=== PATIENT | female | born 1950 | race Caucasian/White ===

== ENCOUNTER 2017-11-14 09:00 | Day surgery (SDC) | payer BC ==
[2017-11-14] MEDS ORDERED: FENTAnyl 50 MCG/ML VIAL (11:07)
[2017-11-14] MEDS ORDERED: MIDAZOLAM 1 MG/ML 2 ML INJ ×2 (11:07)
== END 2017-11-14 11:45 | disposition home or self-care (01) ==
LOC: GIL 09:00
DX: Z12.11 Encounter for screening for malignant neoplasm of colon (principal); K64.8 Other hemorrhoids
CPT/HCPCS: 45378

== ENCOUNTER → 2018-01-21 | Outpatient (CLI) | payer BC ==
[2018-01-21 07:35] LABS: ADD MAN DIFF? NO
[2018-01-21 07:38] LABS: WHITE BLOOD COUNT 6.9 10^3/ul (4.8-10.8)
[2018-01-21 07:38] LABS: BASOPHILS % 0.3 % (0.0-2.0); EOSINOPHILS # 0.2 10^3/ul (0.0-0.5); EOSINOPHILS % 2.2 % (0.0-7.0); HEMATOCRIT 34.4 % (37.0-47.0); HEMOGLOBIN 11.3 g/dl (12.0-16.0); LYMPHOCYTES # 3.3 10^3/ul (0.8-2.9); LYMPHOCYTES % 48.5 % (15.0-51.0); MEAN CORPUSCULAR HEMOGLOBIN 32.1 pg (29.0-33.0); MEAN CORPUSCULAR HGB CONC 32.8 g/dl (32.0-37.0); MEAN CORPUSCULAR VOLUME 97.7 fl (82.0-101.0); MEAN PLATELET VOLUME 9.6 fl (7.4-10.4); MONOCYTE # 0.6 10^3/ul (0.3-0.9); MONOCYTES % 8.1 % (0.0-11.0); NEUTROPHIL # 2.8 10^3/ul (1.6-7.5); NEUTROPHILS % 40.8 % (39.0-77.0); PLATELET COUNT 203 10^3/UL (140-415); RED BLOOD COUNT 3.52 10^6/ul (4.20-5.40); RED CELL DISTRIBUTION WIDTH 16.3 % (11.5-14.5)
[2018-01-21 08:05] LABS: ALANINE AMINOTRANSFERASE 21 IU/L (13-69); ALBUMIN 4.2 g/dl (3.3-4.9); ALKALINE PHOSPHATASE 102 IU/L (42-121); ANION GAP 10 (8-16); ASPARTATE AMINO TRANSFERASE 19 IU/L (15-46); BILIRUBIN,INDIRECT 0.2 mg/dl (0-1.1); BILIRUBIN,TOTAL 0.2 mg/dl (0.2-1.3); BLOOD UREA NITROGEN 14 mg/dl (7-20); CALCIUM 9.1 mg/dl (8.4-10.2); CARBON DIOXIDE 28 mmol/L (21-31); CHLORIDE 111 mmol/L (97-110); CHOL/HDL RATIO 3.7 RATIO; CHOLESTEROL 211 mg/dl (100-200); GLUCOSE 98 mg/dl (70-220); HDL CHOLESTEROL 57 mg/dl (35-98); LDL CHOLESTEROL,CALCULATED 118 mg/dl; POTASSIUM 4.5 mmol/L (3.5-5.1); SODIUM 144 mmol/L (135-144); TOTAL PROTEIN 7.7 g/dl (6.1-8.1); TRIGLYCERIDES 179 mg/dl (0-149)
== END | disposition home or self-care (01) ==
LOC: LAB 07:17
DX: R10.9 Unspecified abdominal pain (principal)
CPT/HCPCS: 80053; 80061; 85025

== ENCOUNTER 2018-04-01 20:01 | Emergency (ER) | payer BC | END 2018-04-01 22:00 | disposition home or self-care (01) | LOC: FTE 22:00 | DX: B02.9 Zoster without complications (principal) | CPT/HCPCS: 99283 ==

== ENCOUNTER 2019-04-25 17:47 | Emergency (ER) | payer BC ==
[2019-04-25] MEDS: ACETAMINOPHEN 325 MG TAB PO (19:31)
[2019-04-25] MEDS: IBUPROFEN 200 MG TAB PO (19:31)
== END 2019-04-25 23:21 | disposition home or self-care (01) ==
LOC: FTE 17:47
DX: G44.209 Tension-type headache, unspecified, not intractable (principal)
CPT/HCPCS: 70450; 99284-25